=== PATIENT | male | born 1990 | race Caucasian/White ===

== ENCOUNTER 2018-05-23 18:13 | Emergency (ER) | payer SELFPAY ==
[2018-05-23 18:23] VITALS: BP 155/90; PULSE 88; RESP 15; TEMP 37.3; O2SAT 98
--- NOTE | 2018-05-23 18:35 | ED.PSYCH ---
HPI - Psych General Chief Complaint: Psychiatric Symptoms Stated Complaint: abdominal pain, an described phsychosis acts Time Seen by Provider: 05/23/18 18:34 Source: patient Mode of arrival: ambulatory Limitations: no limitations History of Present Illness HPI Narrative: patient is a 27-year-old male who walked into the emergency department with friends for evaluation. Patient states that he has a headache and abdominal pain but his complaints change. His friends told nursing staff that he was brought in because he has been acting weird. He states that he was doing hand stands in the middle of the road. Couple days ago he was also in the middle of the road. Patient was very difficult to interview due to very tangential thoughts. Could not give a specific reason why he was here. Could not give a specific reason why he was in the middle of the road. He does state that he has heard voices in the past. At 1 point he did state that he was hearing voices now but then at another time stated that he was not hearing voices. Related Data Allergies Allergy/AdvReac Type Severity Reaction Status Date / Time No Known Drug Allergies Allergy Verified 05/23/18 18:43 Review of Systems Constitutional Reports headache(s) ENT Ears, Nose, Mouth, and Throat: Reports headache(s) Cardiovascular Denies chest pain and Denies dyspnea Respiratory Denies dyspnea Gastrointestinal Gastrointestinal: Reports abdominal pain and Denies change in stool character Musculoskeletal Denies myalgias and Denies arthralgias Neurologic Reports confusion and Reports headache(s) Psychiatric Reports confusion, Reports hallucinations, Denies homicidal ideation and Denies suicidal ideation PFSH Medical History Healthy adult (Acute) Social History Smoking Status: Unknown if ever smoked Social History Smoking Status: Unknown if ever smoked Exam Initial Vital Signs Initial Vital Signs: Vital Signs Temperature 99.2 F 05/23/18 18:23 Pulse Rate 88 05/23/18 18:23 Respiratory Rate 15 05/23/18 18:23 Blood Pressure 155/90 H 05/23/18 18:23 Pulse Oximetry 98 05/23/18 18:23 Const General: cooperative, comfortable, well developed, well groomed and No acute distress Orientation: alert, awake, oriented x3, oriented to person, oriented to place, oriented to time and not confused HENMT Head: normal to inspection and normocephalic Resp Effort & Inspection: normal respiratory effort Auscultation: clear to auscultation bilaterally Cardio Rate: regular rate Rhythm: regular rhythm GI Inspection: non-distended Palpation: soft Skin Lesions: no lesions Rashes: no rashes Neuro General: alert, awake and oriented x3 Cognition: abnormal cognition Speech: speech normal Gait: normal gait Motor: muscle tone normal throughout Sensory Exam: no sensory deficits noted Extrem General: normal to inspection and capillary refill normal Psych Appearance: grossly normal and well kempt Speech and Movement: pressured speech, restless and speech not slurred Mood: congruent mood, not manic, not paranoid and No angry Affect: normal affect Attitude: cooperative Thought Process: flight of ideas, illogical, perseverating and tangential Thought Content: delusions Judgment: limited Course Orders Ordered: ED Orders 05/23/18 19:13 Acetaminophen Stat Complete Blood Count AUTO DIFF Stat Comprehensive Metabolic Panel Stat Ethanol (ETOH) Stat Lipase Stat Salicylate Stat Thyroid Stimulating Hormone Stat 05/23/18 20:19 Urine Drug Screen, Rapid Stat Vital Signs - 8 hr 05/23/18 18:23 05/23/18 20:15 05/23/18 21:00 Temperature 99.2 F Pulse Rate 88 77 73 Respiratory Rate 15 16 Blood Pressure 155/90 H Blood Pressure [Left Arm] 143/90 H 127/73 Pulse Oximetry 98 100 99 MDM - Psych Lab Data Attestation: I reviewed the patient's lab results. Result diagrams: 05/23/18 19:13 05/23/18 19:13 Lab Results 05/23/18 05/23/18 05/23/18 Range/Units 19:13 19:13 19:13 WBC 9.8 (4.5-11.0) X10^3/uL RBC 4.16 L (4.5-5.9) X10^6/uL Hgb 12.4 L (13.5-17.5) g/dL Hct 35.5 L (41-53) % MCV 85.2 (80-100) fL MCH 29.8 (26-34) PG MCHC 35.0 (30-36) % RDW 12.8 (11.6-14.8) % Plt Count 334 (150-400) X10^3/uL Neut % (Auto) 80.5 H (50-75) % Lymph % (Auto) 12.6 L (25-40) % [place] % (Auto) 4.8 (3-14) % Eos % (Auto) 1.1 L (2-4) % Baso % (Auto) 1.0 (0-2) % Neut # (Auto) 7900 H (1956-4670) /uL Lymph # (Auto) 1200 (7629-0363) /uL [place] # (Auto) 500 (0-900) /uL Eos # (Auto) 100 (0-450) /uL Baso # (Auto) 100 (0-100) /uL Sodium 139 (137-145) mmol/L Potassium 3.4 (3.4-5.1) mmol/L Chloride 98 (98-107) mmol/L Carbon Dioxide 30 (22-32) mmol/L BUN 12 (9-20) mg/dL Creatinine 1.10 (0.66-1.25) mg/dL Estimated GFR > 60.0 (>60) mL/min BUN/Creatinine Ratio 10.9 (6-22) Glucose 128 H (70-100) mg/dL Calcium 9.3 (8.4-10.2) mg/dL Total Bilirubin 0.5 (0.2-1.3) mg/dL AST 40 (17-59) IU/L ALT 41 (21-72) IU/L Alkaline Phosphatase 63 (38-126) U/L Total Protein 7.4 (6.3-8.2) g/dL Albumin 4.6 (3.5-5.0) g/dL Globulin 2.8 (1.7-4.1) g/dL Albumin/Globulin Ratio 1.6 (1.0-2.8) Lipase 64 (23-300) U/L TSH 0.50 (0.47-4.68) uIU/mL Salicylates < 1.0 (<20) mg/dL Urine Opiates Screen (Negative) Ur Oxycodone Screen (Negative) Urine Methadone Screen (Negative) Acetaminophen < 10 L (10-30) ug/mL Ur Barbiturates Screen (Negative) U Tricyclic Antidepress (Negative) Ur Phencyclidine Scrn (Negative) Ur Amphetamines Screen (Negative) U Methamphetamines Scrn (Negative) Ur MDMA Scrn (Ecstasy) (Negative) U Benzodiazepines Scrn (Negative) Urine Cocaine Screen (Negative) U Marijuana (THC) Screen (Negative) Ethyl Alcohol < 10 mg/dL 05/23/18 Range/Units 20:19 WBC (4.5-11.0) X10^3/uL RBC (4.5-5.9) X10^6/uL Hgb (13.5-17.5) g/dL Hct (41-53) % MCV (80-100) fL MCH (26-34) PG MCHC (30-36) % RDW (11.6-14.8) % Plt Count (150-400) X10^3/uL Neut % (Auto) (50-75) % Lymph % (Auto) (25-40) % [place] % (Auto) (3-14) % Eos % (Auto) (2-4) % Baso % (Auto) (0-2) % Neut # (Auto) (4843-3985) /uL Lymph # (Auto) (9970-6217) /uL [place] # (Auto) (0-900) /uL Eos # (Auto) (0-450) /uL Baso # (Auto) (0-100) /uL Sodium (137-145) mmol/L Potassium (3.4-5.1) mmol/L Chloride (98-107) mmol/L Carbon Dioxide (22-32) mmol/L BUN (9-20) mg/dL Creatinine (0.66-1.25) mg/dL Estimated GFR (>60) mL/min BUN/Creatinine Ratio (6-22) Glucose (70-100) mg/dL Calcium (8.4-10.2) mg/dL Total Bilirubin (0.2-1.3) mg/dL AST (17-59) IU/L ALT (21-72) IU/L Alkaline Phosphatase (38-126) U/L Total Protein (6.3-8.2) g/dL Albumin (3.5-5.0) g/dL Globulin (1.7-4.1) g/dL Albumin/Globulin Ratio (1.0-2.8) Lipase (23-300) U/L TSH (0.47-4.68) uIU/mL Salicylates (<20) mg/dL Urine Opiates Screen Negative (Negative) Ur Oxycodone Screen Negative (Negative) Urine Methadone Screen Negative (Negative) Acetaminophen (10-30) ug/mL Ur Barbiturates Screen Negative (Negative) U Tricyclic Antidepress Negative (Negative) Ur Phencyclidine Scrn Negative (Negative) Ur Amphetamines Screen Negative (Negative) U Methamphetamines Scrn Negative (Negative) Ur MDMA Scrn (Ecstasy) Negative (Negative) U Benzodiazepines Scrn Negative (Negative) Urine Cocaine Screen Negative (Negative) U Marijuana (THC) Screen Positive H (Negative) Ethyl Alcohol mg/dL MDM Narrative Medical decision making narrative: Patient Is medically cleared. He was alert and oriented x3. Labs are unremarkable. he denied SI or HI. He did have periods of time where he was very tangential in his comments. He was well kept, not cachectic. Does have a place to stay this evening with his brother. I discussed the case with the [facility] who stated that given his presentation he would not meet criteria for an involuntary admission. They did not come and evaluate him here in the emergency department. Patient ambulated around the emergency department without any problems. I do not have a reason to admit him to the hospital here. patient left the department without being discharged. Patient eloped. Discharge Plan Departure Patient Disposition: Left Against Medical Advice Stand Alone Forms: Against Medical Advice
[2018-05-23 19:21] LABS: Add Manual Diff / Slide Review NO; Basophils Absolute Auto 100 /uL (0-100); Eosinophils Absolute Auto 100 /uL (0-450); Eosinophils Percent Auto 1.1 % (2-4); Hematocrit 35.5 % (41-53); Hemoglobin 12.4 g/dL (13.5-17.5); Lymphocytes Absolute Auto 1200 /uL (1100-4500); Lymphocytes Percent Auto 12.6 % (25-40); Mean Corpuscular Hemoglobin 29.8 PG (26-34); Mean Corpuscular Volume 85.2 fL (80-100); Monocytes Absolute Auto 500 /uL (0-900); Monocytes Percent Auto 4.8 % (3-14); Neutrophils Absolute Auto 7900 /uL (1500-7000); Neutrophils Percent Auto 80.5 % (50-75); Platelet Count 334 X10^3/uL (150-400); Red Blood Cell Count 4.16 X10^6/uL (4.5-5.9); Red Cell Distribution Width 12.8 % (11.6-14.8); White Blood Cell Count 9.8 X10^3/uL (4.5-11.0)
--- NOTE | 2018-05-23 19:34 | PC.NURSE ---
pt states I'm here to get some rest pt mom called, left her know he's stable but i couldn't give any info. she states she understood, but wanted us to have info and if we had any questions to call her. [phone], in [place]. she did mention aspergers.
[2018-05-23 19:35] LABS: Acetaminophen < 10 ug/mL (10-30); Alanine Aminotransferase 41 IU/L (21-72); Albumin 4.6 g/dL (3.5-5.0); Albumin Globulin Ratio 1.6 (1.0-2.8); Alkaline Phosphatase 63 U/L (38-126); Aspartate Aminotransferase 40 IU/L (17-59); BUN Creatinine Ratio 10.9 (6-22); Bilirubin Total 0.5 mg/dL (0.2-1.3); Blood Urea Nitrogen 12 mg/dL (9-20); Calcium 9.3 mg/dL (8.4-10.2); Carbon Dioxide 30 mmol/L (22-32); Chloride 98 mmol/L (98-107); Estimated Glomerular Filt Rate > 60.0 mL/min (>60); Ethanol (ETOH) < 10 mg/dL; Globulin 2.8 g/dL (1.7-4.1); Glucose 128 mg/dL (70-100); HEMOLYSIS < 15 (0-50); Lipase 64 U/L (23-300); Potassium 3.4 mmol/L (3.4-5.1); Sodium 139 mmol/L (137-145); Total Protein 7.4 g/dL (6.3-8.2)
[2018-05-23 19:40] LABS: Salicylate < 1.0 mg/dL (<20)
[2018-05-23 20:15] VITALS: BP 143/90; PULSE 77; RESP 16; O2SAT 100
--- NOTE | 2018-05-23 20:26 | PC.NURSE ---
pt friend Roberto [phone] is local and who he is living with.
[2018-05-23 20:28] LABS: Urine Amphetamines Negative (Negative); Urine Barbiturates Negative (Negative); Urine Benzodiazepines Negative (Negative); Urine Cocaine Negative (Negative); Urine MDMA Negative (Negative); Urine Methadone Negative (Negative); Urine Methamphetamines Negative (Negative); Urine Morphine/Opi cutoff 2000 Negative (Negative); Urine Oxycodone Negative (Negative); Urine Phencyclidine Negative (Negative); Urine Tetrahydrocannabinol Positive (Negative); Urine Tricyclic Antidepressant Negative (Negative)
--- NOTE | 2018-05-23 20:33 | PC.NURSE ---
pt was talking to himself. i asked if i could help him, he stated i was worried other people could hear my thoughts and it was bothering people i explained we couldn't but i'd shut the door, its glass we can see in and he can out but that it would help keep his room quiet. he said thank you
[2018-05-23 21:00] VITALS: BP 127/73; PULSE 73; O2SAT 99
--- NOTE | 2018-05-23 21:55 | PC.NURSE ---
Dr aMynard on the phone with triage at [facility] [address]
== END 2018-05-23 22:25 | disposition left against medical advice (07) ==
PROVIDERS: Emergency Provider Emergency Medicine
DX: R10.9 Unspecified abdominal pain (principal)
CPT/HCPCS: 80053; 80305; 80320; 80329; 83690; 84443; 85025; 99283; G0480

== ENCOUNTER 2018-05-23 23:50 | Emergency (ER) | payer SELFPAY ==
[2018-05-24] VITALS: BP 136/72; PULSE 64; RESP 18; O2SAT 99
--- NOTE | 2018-05-24 00:08 | ED_ITS ---
HPI - Psych General Chief Complaint: Psychiatric Symptoms Stated Complaint: NOT IN MY RIGHT HEAD SPACE Time Seen by Provider: 05/24/18 00:08 Source: patient Mode of arrival: ambulatory Limitations: altered mental status History of Present Illness HPI Narrative: Patient is a 27-year-old male who eloped earlier this evening. He returns this time with his friends that he is living with. He returns stating that he needed to sleep for 3 days he also has other complaints to include headache, abdominal pain, head swelling, and needing his tongue stretched. He again denies any suicidal homicidal ideation. very difficult to obtain a history from the patient due to his tangential answering other questions. Denies any auditory hallucinations. Denies ingesting any substances after leaving the emergency department and coming back in now. Related Data Allergies Allergy/AdvReac Type Severity Reaction Status Date / Time No Known Drug Allergies Allergy Verified 05/23/18 18:43 Review of Systems Constitutional Reports headache(s) ENT Ears, Nose, Mouth, and Throat: Reports headache(s) Comments: Needing his tongue stretched Gastrointestinal Gastrointestinal: Reports abdominal pain Neurologic Reports headache(s) Psychiatric Denies visual hallucinations, Denies hallucinations, Denies homicidal ideation and Denies suicidal ideation PFSH Medical History Healthy adult (Acute) Social History Smoking Status: Unknown if ever smoked Social History Smoking Status: Unknown if ever smoked Exam Initial Vital Signs Initial Vital Signs: Vital Signs Pulse Rate 64 05/24/18 00:00 Respiratory Rate 18 05/24/18 00:00 Blood Pressure 136/72 05/24/18 00:00 Pulse Oximetry 99 05/24/18 00:00 Const General: well developed and well groomed Orientation: alert, awake, oriented x3, oriented to person, oriented to place, oriented to time and not confused Limitations: other limitations ( very tangential when answering questions) HENMT Head: normal to inspection and normocephalic Resp Effort & Inspection: normal respiratory effort Cardio Rate: regular rate GI Inspection: non-distended Palpation: soft Skin Lesions: no lesions Rashes: no rashes Neuro General: alert, awake and oriented x3 Cognition: abnormal cognition Speech: speech normal Extrem General: normal to inspection and capillary refill normal Psych Appearance: well kempt Speech and Movement: agitated, pressured speech and restless Mood: labile mood Affect: anxious affect Attitude: avoids eye contact and refuses to answer Thought Process: circumstantial, flight of ideas and illogical Thought Content: no homicidality and suicidality Judgment: poor Course Vital Signs - 8 hr 05/24/18 00:00 05/24/18 02:06 05/24/18 04:18 Temperature 98.7 F Pulse Rate 64 74 74 Respiratory Rate 18 18 18 Blood Pressure 136/72 136/72 Blood Pressure [Right Arm] 136/72 126/79 Pulse Oximetry 99 98 98 MDM - Psych MDM Narrative Medical decision making narrative: the 2 individuals who brought the patient back to the emergency department who apparently are the individuals that he lives with wrote statements both stating that the patient has been acting very strange. Stating that he has been running out into the road making comments like hit me and I want to they also make statements stating that the patient has admitted to hearing voices which he is admitted to me. I specifically asked the patient if he was okay with me trying to find a facility to help him with his current conditions however he would not specifically give me consent to do this. He would not answer this question. He is extremely tangential. Asking me to find out why his head is swollen. Stating that he needed to sleep for 3 days. Patient is alert and oriented x3. However I do not feel that he has the capacity to make decisions. Patient is medically cleared. Patient was detained by [facility]. patient has remained calm. Will continue to monitor Until transported to mental health facility Discharge Plan Departure Patient Disposition: [facility] Clinical Impression: Acute psychosis
--- NOTE | 2018-05-24 00:40 | PC.NURSE ---
Two individuals reporting that they are friends who brought pt to ED have written affidavits describing pt behavior prior to arrival including that the pt earlier was in the middle of the road screaming hit me, I want to . Further details are included in chart in affidavits.
[2018-05-24 02:06] VITALS: BP 126/79; PULSE 74; RESP 18; O2SAT 98
--- NOTE | 2018-05-24 02:06 | PC.NURSE ---
DCR arrived at 0158, discussing pt with Dr Maynard.
--- NOTE | 2018-05-24 02:59 | PC.NURSE ---
Pt not in restraints per DR Maynard and is able to remain sitting on floor in room calmly. DCR detaining pt and looking for bed placment.
[2018-05-24 04:18] VITALS: BP 136/72; PULSE 74; RESP 18; TEMP 37.1; O2SAT 98
--- NOTE | 2018-05-24 05:29 | PC.NURSE ---
[facility], transport being arranged by [facility].
== END 2018-05-24 07:05 | disposition short-term general hospital (02) ==
PROVIDERS: Emergency Provider Emergency Medicine
DX: F23 Brief psychotic disorder (principal)
CPT/HCPCS: 99283